=== PATIENT | female | born 2000 | race African-American/Black ===

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

== ENCOUNTER 2023-08-16 13:56 | Emergency (ER) | payer MEDICAID, OTHER ==
[~2023-08-16] VITALS: Ht 167.6 cm; Wt 53.0 kg
[2023-08-16 14:59] VITALS: BP 123/78; PULSE 91; RESP 16; TEMP 97.9; O2SAT 100
[2023-08-16] MEDS ORDERED: TRIA0.02 TOP (15:37)
[2023-08-16] MEDS ORDERED: CEPH500C PO (15:37)
== END 2023-08-16 15:56 | disposition home or self-care (01) ==
LOC: ER 13:56
DX: S70.362A Insect bite (nonvenomous), left thigh, initial encounter (principal); S70.361A Insect bite (nonvenomous), right thigh, initial encounter; T78.40XA Allergy, unspecified, initial encounter; F12.10 Cannabis abuse, uncomplicated; W57.XXXA Bitten or stung by nonvenomous insect and other nonvenomous arthropods, initial encounter; Y93.89 Activity, other specified; Y92.89 Other specified places as the place of occurrence of the external cause; Y99.8 Other external cause status